=== PATIENT | male | born 2000 | race Caucasian/White ===

== ENCOUNTER 2025-03-06 07:42 | Outpatient (CLI) | payer OTHER ==
[~2025-03-06] VITALS: Ht 190.5 cm; Wt 154.1 kg
[2025-03-06 07:55] VITALS: BP 146/84; TEMP 98.9; O2SAT 100
[2025-03-06] MEDS: LIDOCAINE 1% MDV 20 ML VIAL SC ONE (08:05)
== END 2025-03-06 10:15 | disposition home or self-care (01) ==
LOC: M SDC 07:42 → M OPCLI4PR 07:42 → M SDC 10:15 → EDSTATUS 03-18 09:15
PROVIDERS: ATTEND Orthopaedic Surgery
DX: S68.624A Partial traumatic transphalangeal amputation of right ring finger, initial encounter (principal); S68.626A Partial traumatic transphalangeal amputation of right little finger, initial encounter; X58.XXXA Exposure to other specified factors, initial encounter; Y92.79 Other farm location as the place of occurrence of the external cause; Y93.9 Activity, unspecified; Y99.0 Civilian activity done for income or pay